=== PATIENT | female | born 1995 | race Caucasian/White ===

== ENCOUNTER 2018-12-12 08:37 | Outpatient (CLI) | payer OTHER ==
[~2018-12-12 08:37] MED LIST: CATAFLAM50 MG PO; ORPH100T PO
== END 2018-12-12 08:42 | disposition home or self-care (01) ==
LOC: NUCLEAR 08:37
DX: R10.11 Right upper quadrant pain (principal)
CPT/HCPCS: 78227; A9537

== ENCOUNTER 2019-06-22 10:26 | Outpatient (CLI) | payer OTHER | END 2019-06-22 10:33 | disposition home or self-care (01) | LOC: RAD 10:26 | DX: N62 Hypertrophy of breast (principal) ==

== ENCOUNTER 2019-11-30 11:19 | Outpatient (CLI) | payer OTHER | END 2019-11-30 11:29 | disposition home or self-care (01) | LOC: SONOGRAMA 11:19 | PROVIDERS: ATTEND Plastic Surgery | DX: N62 Hypertrophy of breast (principal) ==